=== PATIENT | female | born 1995 | race Caucasian/White ===

== ENCOUNTER 2016-12-21 12:34 | Emergency (ER) | payer OTHER ==
[~2016-12-21] VITALS: Ht 162.6 cm; Wt 107.2 kg
[2016-12-21] MEDS ORDERED: COLACE100 MG PO (16:00)
[2016-12-21] MEDS ORDERED: BENTYL20 MG PO (16:00)
[2016-12-21 16:15] VITALS: BP 135/84
== END 2016-12-21 16:16 | disposition home or self-care (01) ==
LOC: EME 12:34
DX: K59.09 Other constipation (principal); R10.30 Lower abdominal pain, unspecified; F17.200 Nicotine dependence, unspecified, uncomplicated; Z71.6 Tobacco abuse counseling; Q05.9 Spina bifida, unspecified
CPT/HCPCS: 74020; 99281; 99283

== ENCOUNTER 2017-03-05 15:28 | Emergency (ER) | payer OTHER ==
[~2017-03-05] VITALS: Ht 162.6 cm; Wt 110.0 kg
[~2017-03-05 15:28] MED LIST: BENTYL20 MG PO; COLACE100 MG PO
[2017-03-05 16:34] LABS: ADD MIUA? YES; BILIRUBIN NEGATIVE; BLOOD LARGE; COLOR AMBER ((YELLOW)); GLUCOSE (STRIP) NEGATIVE; KETONES NEGATIVE; LEUKOCYTES LARGE; NITRITE POSITIVE; PROTEIN (STRIP) 100; SPECIFIC GRAVITY 1.023 (1.000-1.030); UROBILINOGEN 0.2 MG/DL (0.2-1.0)
[2017-03-05 16:56] LABS: RED BLOOD CELLS TNTC /HPF (0-5); UCUL ADDED? YES; WHITE BLOOD CELLS TNTC /HPF (0-5)
[2017-03-05 17:39] LABS: HEMATOCRIT 40.6 % (36.0-46.0); MCH 31.3 PG (29.0-34.0); MCHC 33.3 G/DL (30.0-36.0); MCV 94.2 FL (83-99); MEAN PLAT.VOLUME 11.2 uM^3 (9.5-12.4); PLATELET COUNT 220 K/uL (156-360); RBC DIS.WIDTH-CV 12.5 % (11.8-14.6); RBC DIS.WIDTH-SD 43.5 % (39-53); RED BLOOD COUNT 4.31 M/uL (3.80-5.20); WHITE BLOOD COUNT 13.2 K/uL (4.1-10.2)
[2017-03-05 17:51] LABS: CHLORIDE 111 mEq/L (99-109); POTASSIUM 3.9 mEq/L (3.7-5.4); SODIUM 143 mEq/L (136-147)
[2017-03-05 17:52] LABS: GLUCOSE 100 mg/dL (70-99)
[2017-03-05 17:54] LABS: ANION GAP 11 MEQ/L (2-14)
[2017-03-05 17:56] LABS: GFR ESTIMATE (CALCULATED) > 59 mL/min/
[2017-03-05 17:57] LABS: UREA NITROGEN (BUN) 8 mg/dL (9-23)
[2017-03-05 18:04] LABS: QUANTITATIVE HCG < 4.0 MIU/ML
[2017-03-05] MEDS ORDERED: CIPRO500 MG PO (19:27)
[2017-03-05] MEDS ORDERED: PYRIDIUM200 MG PO (19:44)
[2017-03-05 20:09] VITALS: BP 112/86
== END 2017-03-05 20:10 | disposition home or self-care (01) ==
LOC: EXP 15:28 → EME 15:28 → EXP 20:10
PROVIDERS: Physician Assistant Medical
DX: N12 Tubulo-interstitial nephritis, not specified as acute or chronic (principal); Z87.440 Personal history of urinary (tract) infections; F17.200 Nicotine dependence, unspecified, uncomplicated
CPT/HCPCS: 74177; 80048; 81003; 84702; 85027; 87077; 87086; 87186; 99281; 99284; J1885; J7030